=== PATIENT | male | born 1965 | race Caucasian/White ===

== ENCOUNTER 2017-05-10 22:02 | Emergency (ER) | payer BC, OTHER ==
[~2017-05-10] VITALS: Ht 172.7 cm; Wt 83.9 kg
[2017-05-10] MEDS ORDERED: LIPITOR10 MG PO (22:08)
[2017-05-10 23:22] LABS: BASOPHILS 0.6 % (0.0-2.0); EOSINOPHILS 3.3 % (0.0-3.0); HEMOGLOBIN 16.3 gm/dL (14.0-18.0); LYMPHOCYTES 21.2 % (24.0-44.0); MCH 29.6 pg (26.0-34.0); MCHC 34.6 g/dL (28.0-37.0); MCV 85.3 fL (80.0-100.0); MONOCYTES 9.2 % (1.0-8.0); PLATELET COUNT 232 thou/uL (150-400); POLYS 65.7 % (36.0-66.0); RBC 5.51 mil/uL (4.50-6.00); RDW 13.6 % (10.5-14.5); WBC 10.7 thou/uL (4.0-11.0)
[2017-05-10 23:27] LABS: CALCIUM 9.7 mg/dL (8.5-10.1)
[2017-05-10 23:30] LABS: MANUAL DIFF NO
[2017-05-10] MEDS ORDERED: BACTRIM DS TAB1 EACH PO (23:34)
[2017-05-10] MEDS ORDERED: HYDROCODONE-AP1 EAC6 PO (23:34)
[2017-05-10] MEDS ORDERED: IBUPROFEN 600600 M1 PO (23:34)
[2017-05-11 00:04] VITALS: BP 138/100
[2017-05-11 00:04] LABS: CLARITY CLOUDY; COLOR YELLOW; MANUAL DIFF YES; TOTAL VOLUME 0.75 mL
[2017-05-11 00:06] LABS: BF NUCLEATED CELLS 5500; BF RBC 5350 /uL
[2017-05-11 00:53] LABS: BF MACROPHAGE 0; BF NEUTROPHILS 96
== END 2017-05-11 00:06 | disposition home or self-care (01) ==
LOC: ER 22:02
PROVIDERS: Physician Assistant
DX: M70.21 Olecranon bursitis, right elbow (principal); F10.99 Alcohol use, unspecified with unspecified alcohol-induced disorder; Y93.89 Activity, other specified